=== PATIENT | female | born 1960 | race Caucasian/White ===

== ENCOUNTER 2017-03-19 10:39 | Emergency (ER) | payer OTHER ==
[2017-03-19 10:46] VITALS: TEMP 97.7
--- NOTE | 2017-03-19 10:54 | CPEKG ---
Heart Rate: 83 RR Interval: 723 P-R Interval: 113 QRSD Interval: 92 QT Interval: 380 QTC Interval: 447 P [place]: 0 QRS [place]: 85 T Wave [place]: 33 EKG Severity - NORMAL ECG - EKG Impression: SINUS RHYTHM Electronically Signed By: Elisa Stout 19-Mar-2017 18:15:05
--- NOTE | 2017-03-19 11:13 | EDPHY ---
H & P Stated Complaint: palpitations/sob/ l arm heavyness since last friday Time Seen by Provider: 03/19/17 11:07 HPI/ROS: CHIEF COMPLAINT: Left arm weakness, palpitations, dizziness. HISTORY OF PRESENT ILLNESS: The patient is a 56-year-old female with no cardiac history who presents with left arm weakness, heaviness, and dull left- sided chest ache that was present upon waking. She admits associated palpitations, shortness of breath, and dizziness. She does note having similar symptoms [place] evening with dizziness, palpitations, shortness of breath, achy discomfort, as well as burping and epigastric pain that lasted 2.5 hours. She has felt fatigued since Friday. The dizziness is described as feeling faint and like the room spinning. The achiness has been constant with mild waxing and waning, patient is unable to clearly identify worsening or alleviating factors. She denies vomiting, diaphoresis, diarrhea, fever, chills, urinary complaints , headache, lightheadedness, speech distortions. REVIEW OF SYSTEMS: Aside from elements discussed in the HPI, a comprehensive 10-point review of systems was reviewed and is negative. PAST MEDICAL HISTORY: Lupus, ovarian cyst, osteoporosis, fibromyalgia. SOCIAL HISTORY: Former smoker, no alcohol use. VITAL SIGNS: Reviewed by me GENERAL: Thin individual, speaks very soft,, resting comfortably in no respiratory distress. HEENT: Atraumatic. Eyes: No icterus, no injection. Mouth: moist mucous membranes. No erythema or lesions. Neck: supple with no adenopathy. LUNGS: Clear to auscultation bilaterally, no wheezes, rhonchi or rales. CARDIAC: Regular rate and rhythm, no rubs, murmurs or gallops. CHEST: No chest wall tenderness, no rash, full range of motion at the shoulder without discomfort. ABDOMEN: Soft, nontender, nondistended, bowel sounds normal. BACK: No CVA tenderness. EXTREMITIES: No trauma. No edema. Range of motion is normal throughout. NEURO: Alert and oriented, grossly nonfocal. SKIN: Warm and dry, no rash. PSYCHIATRIC: Normal mentation, no agitation. Portions of this note were transcribed by a medical technical writer. I personally performed a history, physical exam, medical decision making, and confirmed accuracy of information the transcribed note. Source: Patient Exam Limitations: No limitations - Personal History Current Tetanus/Diphtheria Vaccine: Unsure - Medical/Surgical History Hx Asthma: No Hx Chronic Respiratory Disease: No Hx Diabetes: No Hx Cardiac Disease: No Hx Renal Disease: No Hx Cirrhosis: No Hx Alcoholism: No Hx HIV/AIDS: No Hx Splenectomy or Spleen Trauma: No Other PMH: ovarian cyst/knee prob/osteoporosis/auto immune disease/fibromyalgia/ lupus - Social History Smoking Status: Never smoked Constitutional: Initial Vital Signs Temperature (C) 36.5 C 03/19/17 10:42 Heart Rate 109 H 03/19/17 10:42 Respiratory Rate 20 03/19/17 10:42 Blood Pressure 170/95 H 03/19/17 10:42 O2 Sat (%) 97 03/19/17 10:42 O2 Delivery Mode Room Air Allergies/Adverse Reactions: Cephalosporins Allergy (Verified 03/19/17 10:41) Home Medications: Medication Instructions Recorded Herbals/Supplements -Info Only 1 ea PO DAILY 03/19/17 Magnesium Oxide [Magnesium Oxide 400 mg PO DAILY 03/19/17 400 mg (*)] Multivitamins [Multivitamin (*)] 1 each PO DAILY 03/19/17 predniSONE 1.75 mg PO DAILY 03/19/17 Medical Decision Making - Diagnostics EKG Interpretation: 12-LEAD EKG: Please see the full report in [facility]. My interpretation: Normal sinus rhythm, no ischemic changes. Imaging Results: Imaging Impressions Chest X-Ray 03/19/17 11:19 Impression: COPD, with no abnormality. Chest/Thorax CTA 03/19/17 12:14 Impression: 1. No pulmonary embolism. 2. Clear lungs. Findings and recommendations discussed with Elisa Stout MD at 1358 hour, . Final report concurs with initial preliminary interpretation. Imaging: Discussed imaging studies w/ call or contact centre operator Radiologist ED Course/Re-evaluation: 56-year-old female with no prior cardiac history presents with palpitations, left chest ache, and left arm weakness and achy pain that has been present since waking this morning. She had similar symptoms on Friday that were worse and has been feeling fatigued since then. I am concerned for a cardiac process in this patient. She has a normal exam. An IV was established and labs ordered including cardiac enzymes. 324mg PO Aspirin administered. EKG and chest x-ray ordered. EKG shows normal sinus rhythm, no ischemic changes. I reviewed the patient's laboratory studies. D-dimer elevated at 1.76. Chest CTA ordered. 1358: CTA results conveyed to me negative by Dr. Lombardi, radiology. Patient reports her pain has improved with aspirin but is not totally resolved. Nitroglycerin was ordered. 1432: Consulted with Dr. Estrada, hospitalist. She accepts admission. Differential Diagnosis: After history and physical examination, the differential for this patient's presenting symptoms was considered, including but not limited to, myocardial ischemia, acute coronary syndrome, pulmonary embolus, chest wall pain, pleural inflammation and pulmonary infectious causes. Consult/Admit Bed Type: Dr. Estrada, U - Data Points Laboratory Results: Laboratory Results 03/19/17 10:50 03/19/17 10:50 03/19/17 03/19/17 03/19/17 10:50 10:50 10:50 WBC RBC Hgb Hct MCV MCH MCHC RDW Plt Count MPV Neut % (Auto) Lymph % (Auto) [place] % (Auto) Eos % (Auto) Baso % (Auto) Nucleat RBC Rel Count Absolute Neuts (auto) Absolute Lymphs (auto) Absolute Monos (auto) Absolute Eos (auto) Absolute Basos (auto) Absolute Nucleated RBC Immature Gran % Immature Gran # D-Dimer 1.73 ug/mLFEU H ug/mLFEU (0.00-0.50) Sodium 141 mEq/L mEq/L (134-144) Potassium 3.8 mEq/L mEq/L (3.5-5.2) Chloride 104 mEq/L mEq/L (97-110) Carbon Dioxide 23 mEq/l mEq/l (22-31) Anion Gap 14 mEq/L mEq/L (8-16) BUN 8 mg/dL mg/dL (7-23) Creatinine 0.7 mg/dL mg/dL (0.6-1.0) Estimated GFR > 60 Glucose 85 mg/dL mg/dL (70-100) Calcium 10.0 mg/dL mg/dL (8.5-10.4) Total Bilirubin 0.7 mg/dL mg/dL (0.1-1.4) Conjugated Bilirubin 0.3 mg/dL mg/dL (0.0-0.5) Unconjugated Bilirubin 0.4 mg/dL mg/dL (0.0-1.1) AST 25 IU/L IU/L (14-46) ALT 34 IU/L IU/L (9-52) Alkaline Phosphatase 85 IU/L IU/L (38-126) Troponin I < 0.012 ng/mL ng/mL (0-0.034) NT-Pro-B Natriuret Pep 58 pg/mL pg/mL (0-125) Total Protein 7.9 g/dL g/dL (6.3-8.2) Albumin 4.7 g/dL g/dL (3.5-5.0) Lipase 80.0 IU/L IU/L (23-300) TSH Pending 03/19/17 10:50 WBC 5.70 10^3/uL 10^3/uL (3.80-9.50) RBC 5.21 10^6/uL 10^6/uL (4.18-5.33) Hgb 14.7 g/dL g/dL (12.6-16.3) Hct 43.8 % % (38.0-47.0) MCV 84.1 fL fL (81.5-99.8) MCH 28.2 pg pg (27.9-34.1) MCHC 33.6 g/dL g/dL (32.4-36.7) RDW 14.0 % % (11.5-15.2) Plt Count 257 10^3/uL 10^3/uL (150-400) MPV 11.2 fL fL (8.7-11.7) Neut % (Auto) 58.6 % % (39.3-74.2) Lymph % (Auto) 32.3 % % (15.0-45.0) [place] % (Auto) 7.0 % % (4.5-13.0) Eos % (Auto) 0.4 % L % (0.6-7.6) Baso % (Auto) 1.2 % % (0.3-1.7) Nucleat RBC Rel Count 0.0 % % (0.0-0.2) Absolute Neuts (auto) 3.34 10^3/uL 10^3/uL (1.70-6.50) Absolute Lymphs (auto) 1.84 10^3/uL 10^3/uL (1.00-3.00) Absolute Monos (auto) 0.40 10^3/uL 10^3/uL (0.30-0.80) Absolute Eos (auto) 0.02 10^3/uL L 10^3/uL (0.03-0.40) Absolute Basos (auto) 0.07 10^3/uL 10^3/uL (0.02-0.10) Absolute Nucleated RBC 0.00 10^3/uL 10^3/uL (0-0.01) Immature Gran % 0.5 % % (0.0-1.1) Immature Gran # 0.03 10^3/uL 10^3/uL (0.00-0.10) D-Dimer Sodium Potassium Chloride Carbon Dioxide Anion Gap BUN Creatinine Estimated GFR Glucose Calcium Total Bilirubin Conjugated Bilirubin Unconjugated Bilirubin AST ALT Alkaline Phosphatase Troponin I NT-Pro-B Natriuret Pep Total Protein Albumin Lipase TSH Medications Given: Discontinued Medications Aspirin (Aspirin) 324 mg PO EDNOW ONE Stop: 03/19/17 11:20 Last Admin: 03/19/17 11:26 Dose: 324 mg Nitroglycerin (Nitrostat) 0.4 mg SL Q5M PRN PRN Reason: Chest Pain Stop: 03/19/17 14:49 Last Admin: 03/19/17 14:58 Dose: 0.4 mg Departure - Departure Disposition: [facility] Clinical Impression: Left arm weakness, Palpitations, Left arm pain Chest pain Qualifiers: Chest pain type: unspecified Qualified Code(s): R07.9 - Chest pain, unspecified Condition: Fair Report Scribed for: Elisa Stout Report Scribed by: Harry Caceres Date of Report: 03/19/17 Time of Report: 11:14
[2017-03-19] MEDS ORDERED: ASPIRIN 81 MG CHEWABLE TAB PO ONE (11:19)
[2017-03-19 11:26] LABS: % IMMATURE GRANULYOCYTES 0.5 % (0.0-1.1); ABSOLUTE IMMATURE GRANULOCYTES 0.03 10^3/uL (0.00-0.10); ADD DIFF? NO; ADD MORPH? NO; ADD SCAN? NO; ATYPICAL LYMPHOCYTE FLAG 0 (0-99); FRAGMENT RBC FLAG 0 (0-99); HEMATOCRIT 43.8 % (38.0-47.0); HEMOGLOBIN 14.7 g/dL (12.6-16.3); LEFT SHIFT FLG 0 (0-99); LIPEMIA HEMOLYSIS FLAG 80 (0-99); MEAN CELL HEMOGLOBIN 28.2 pg (27.9-34.1); MEAN CELL HEMOGLOBIN CONCENTR. 33.6 g/dL (32.4-36.7); MEAN CELL VOLUME 84.1 fL (81.5-99.8); MEAN PLATELET VOLUME 11.2 fL (8.7-11.7); PLATELET CLUMPS FLAG 10 (0-99); PLATELET COUNT 257 10^3/uL (150-400); RED BLOOD CELL COUNT 5.21 10^6/uL (4.18-5.33)
[2017-03-19 11:32] LABS: ALANINE AMINOTRANSFERASE 34 IU/L (9-52); ALBUMIN 4.7 g/dL (3.5-5.0); ALKALINE PHOSPHATASE 85 IU/L (38-126); ANION GAP 14 mEq/L (8-16); ASPARTATE AMINOTRANSFERASE 25 IU/L (14-46); BILIRUBIN,TOTAL 0.7 mg/dL (0.1-1.4); BILIRUBIN-CONJUGATED 0.3 mg/dL (0.0-0.5); BILIRUBIN-UNCONJUGATED 0.4 mg/dL (0.0-1.1); CARBON DIOXIDE 23 mEq/l (22-31); CHLORIDE 104 mEq/L (97-110); CREATININE 0.7 mg/dL (0.6-1.0); GLOMERULAR FILTRATION RATE > 60; GLUCOSE 85 mg/dL (70-100); POTASSIUM 3.8 mEq/L (3.5-5.2); SODIUM 141 mEq/L (134-144); TOTAL PROTEIN 7.9 g/dL (6.3-8.2)
[2017-03-19 11:43] LABS: TROPONIN I < 0.012 ng/mL (0-0.034)
[2017-03-19] MEDS ORDERED: IOPAMIDOL (ISOVUE 370) 100 ML BTL IV ONE (12:23)
[2017-03-19] MEDS ORDERED: ACETAMINOPHEN 325 MG TAB PO PRN (14:37)
[2017-03-19] MEDS ORDERED: ONDANSETRON DISINTEGRATING 4 MG TAB PO PRN (14:37)
[2017-03-19] MEDS ORDERED: ONDANSETRON 4 MG/2 ML VIAL IVP PRN (14:37)
[2017-03-19] MEDS ORDERED: NITROGLYCERIN 0.4 MG BTL SL PRN (14:38)
--- NOTE | 2017-03-19 15:17 | CPEKG ---
Heart Rate: 89 RR Interval: 674 P-R Interval: 116 QRSD Interval: 90 QT Interval: 380 QTC Interval: 463 P [place]: 75 QRS [place]: 86 T Wave [place]: 54 EKG Severity - NORMAL ECG - EKG Impression: SINUS RHYTHM Electronically Signed By: Elisa Stout 19-Mar-2017 18:15:02
--- NOTE | 2017-03-19 16:05 | GHP ---
[f rep st] HISTORY AND PHYSICAL DATE OF ADMISSION: 03/19/2017 CHIEF COMPLAINT: Left arm pain, dizziness HISTORY OF PRESENT ILLNESS: Patient is a 56-year-old female with history of lupus, fibromyalgia, and PMR, presenting with dull left arm achiness. This occurred when she awoke, mainly in the shoulder and biceps. It was also accompanied by dizziness and an upset stomach. She felt diffusely weak with some mild tingling in her arm. She has had similar symptoms in past but not as bad. She attributes them to tapering down on pred for PMR and increased stressors. Pain in the left arm actually got worse with nitro, and developed a headache. Pain resolved on its own prior to nitro here in the emergency room. Went down on prednisone to 1.75mg on Friday. Denies any fevers, chills, or sweats. No cough. No diarrhea. No slurred speech or presyncope. Had a similar episode Friday evening for about 2 hours when she was dizzy, had a lot of belching/burping gas, and nausea. She walks daily for 30-45 minutes without chest pain or shortness of breath. She will have some mild shortness of breath if climbing elevation on hikes. REVIEW OF SYSTEMS: I completed a 10-point review of systems; negative except as noted in HPI. PAST MEDICAL HISTORY: Lupus, ovarian cyst, osteoporosis, fibromyalgia, temporal arteritis on MRI but negative biopsy, polymyalgia rheumatica. SOCIAL HISTORY: Former tobacco; quit in 1991. Lives in [place]. No illicit's or alcohol. FAMILY HISTORY: Maternal grandfather with a heart attack. Father with arrhythmias. HOME MEDICATIONS: Prednisone. ALLERGIES: Cephalosporins. PHYSICAL EXAMINATION: VITAL SIGNS: Temperature 36.5, blood pressure 170/95 ( now 154/84), heart rate 90s, respirations 20, 96% on room air. GENERAL: Sitting up in bed. Mildly tired appearing, but no acute distress. HEENT: PERRLA. EOMI. Oropharynx clear. CV: Regular rate and rhythm. No murmurs, gallops, or rubs. LUNGS: Clear to auscultation. No crackles or wheezing. ABDOMEN: Soft, nontender, nondistended. Positive bowel sounds. : No suprapubic tenderness. MUSCULAR : 5/5 upper and lower extremity strength. NEURO: 2 through 12 intact. Sensation to light touch intact throughout. PSYCH: Alert and oriented x3. LABORATORY DATA: WBC 5, hemoglobin 14, hematocrit 43, platelets 257. D-dimer 1.73 sodium 141, potassium 3.8, chloride 104, carbon dioxide 23, BUN 8, creatinine 0.7, glucose 85. LFTs within normal. Troponin less than 0.12. BNP 58. Lipase 80. Albumin is 4.7. Chest x-ray is personally reviewed by me: Hyper-expansion. No opacity or effusion. CTA no pulmonary embolism; clear lungs. EKG personally reviewed by me. Normal sinus rhythm. No ST elevation or depression. ASSESSMENT AND PLAN: 1. Atypical arm pain: differential includes pulmonary embolism versus acute coronary syndrome versus musculoskeletal versus gastroesophageal reflux disease. CTA was negative for pulmonary embolism. Initial troponin and EKG were negative; repeats are pending. No tenderness on musculoskeletal exam. She is trending down on her prednisone and this may be secondary to polymyalgia rheumatica. Can consider a stress test, but it would be reasonable to do this as an outpatient if repeat troponin and EKG are negative. Will re-discuss with patient and family. She does report increased personal stressors at home over the last couple weeks but did not elaborate. Followed by Dr. Bustamante in rheumatology. Chest x-ray was negative for pneumonia. She is afebrile. 2. Polymyalgia rheumatica: Is on prednisone at a very slow taper. Most recently, decreased to 1.75 mg, as she says she is very sensitive to changes. 3. Diet: Regular. 4. Deep vein thrombosis prophylaxis: Low risk, ambulatory. DISPOSITION: Patient warrants observation admission given acute left arm pain. Telemetry monitoring. /[id number]/MODL MTDD
[2017-03-19 16:20] VITALS: BP 120/87; PULSE 83; RESP 16; O2SAT 96
--- NOTE | 2017-03-19 16:35 | GDS ---
[f rep st] DISCHARGE SUMMARY DISCHARGE DIAGNOSES: 1. Left arm pain. 2. Lupus. 3. Ovarian cyst. 4. Osteoporosis. 5. Fibromyalgia. 6. h/o temporal arteritis findings on MRI, but negative biopsy. 7. Polymyalgia rheumatica. HISTORY OF PRESENT ILLNESS: Please see history and physical dated 03/19/2017 for full details. I had planned on initial observation admission; however, 2nd troponin and EKG were negative for ischemia. Patient would like to go home at this time and follow up with her PCP, Dr. Cardenas. I advised if symptoms persist , return to the emergency room. Consider an outpatient stress test. LABS PENDING: TSH, T3/T4 FOLLOWUP: 1. Dr. Cardenas, PCP. for possible outpatient stress test. 2. Dr. Echevarria, rheumatology. /[id number]/MODL MTDD
== END 2017-03-19 16:40 | disposition still patient (30) ==
LOC: UNDOADMOB 14:35
DX: R07.89 Other chest pain (principal); M79.603 Pain in arm, unspecified; R42 Dizziness and giddiness
CPT/HCPCS: 84481-90; Q9967